=== PATIENT | male | born 1955 | race Caucasian/White ===

== ENCOUNTER 2021-11-25 15:11 | Inpatient (IN) | payer MEDICARE, OTHER ==
[~2021-11-25] VITALS: Ht 178 cm; Wt 71.1 kg
[~2021-11-25 15:11] MED LIST: ADENOSINE 6 MG/2 ML (ADENOCARD) VIAL IV ONE; HEParin (CATH LAB) 2,000 ML IV ONE; HEParin 1000 UNIT/ML (10ML VIAL) FOR BOLUS ONE; LIDOCAINE 1% INJ 30 ML (XYLOCAINE) VIAL ONE; MIDAZOLAM 2 MG/2 ML (VERSED) VIAL ONE; NITRO DRIP 25000 MCG/D5W 250 ML IV ONE; NS (IVPB) 250 ML ONE; NS IV 1000 ML 1,000 ML ONE; VERAPAMIL 5 MG/2 ML (CALAN) VIAL IV ONE; fentaNYL INJ 100 MCG/2 ML AMP ONE; hydrALAZINE (APESOLINE) 20 MG/ML VIAL ONE
--- NOTE | 2021-11-25 15:19 | Consultation-Cardiology ---
HPI-Cardiology Cardiology Consultation: Date of Consultation 11/25/21 Date of Admission 11/25/21 Attending Physician No,Local Physician Admitting Physician Admitting Physician: Attending Physician: Aureliano Bates Jr, MD Consulting Physician AURELIANO BATES JR, MD HPI: Time Seen by a Provider: 15:18 Chief Complaint: THIS IS A HISTORY AND PHYSICAL FOR ADMISSION I had the pleasure of seeing Santos in the cardiac catheterization laboratory at [facility] in [place], [place] today. He has no previously known history of coronary artery disease. For the past 4 days he has been having intermittent substernal chest tightness. This is waxed and waned. At first this was mild and he thought this might just be acid reflux. He tried taking some Tums which initially seemed to help. However, today the chest discomfort became more severe. He took some additional Tums which did not help. He was also slightly diaphoretic. He then had his son drive him to an outside emergency room. His electrocardiogram in the outside emergency room showed significant anterior ST elevation consistent with an anterior STEMI. I was then contacted by the outside emergency room physician and the patient was excepted for urgent transfer for emergency cardiac catheterization. He denies any dyspnea, paroxysmal nocturnal dyspnea, orthopnea, palpitations, lightheadedness, syncope, or lower extremity edema. Certain portions of this document may have been dictated utilizing voice recognition technology. Inherent to this technology, typographical and grammatical errors may exist. As much as I am diligent to identify and correct these mistakes, some errors may remain in the document. Review of Systems-Cardiology Review of Systems Other comments Review of 10 organ systems is as per the history of present illness, otherwise negative. YRY-Ywwacy-Gpzdzs Hx Patient Social History Smoking Status: Former Smoker Past Medical History PMH As described under Assessment. Family Medical History Family Medical History: His mother had heart disease but in her 70s. Allergies and Home Medications Patient Home Medication List Home Medication List Reviewed: Yes Exam Vital Signs Heart rate 77 bpm. Blood pressure 121/69 mmHg. Respirations 16. Oxygen saturation 97%. Height 5 foot 10 inches. Weight 165 pounds. Physical Exam General: Alert. No acute distress. Well nourished and appears stated age. Eye: Extraocular movements are intact. Conjunctivae are clear. There are no xanthelasma. HENT: Normocephalic. Atraumatic. Carotid pulsations 2/2 without bruits. Neck: Jugular venous pressure does not appear elevated. No thyromegaly appreciated. Respiratory: Lungs are clear to auscultation. Respirations are non-labored. Breath sounds are equal. Symmetrical chest wall expansion. Cardiovascular: Normal rate. Regular rhythm. No murmur. No gallop. Point of maximal impulse is not appear displaced. Good pulses equal in all extremities. No edema. Gastrointestinal: Soft. Normal bowel sounds. Skin: Skin turgor is normal. There is no pallor. Musculoskeletal: No kyphosis or scoliosis appreciated. Neurologic: Alert and oriented to person, place, time. Cranial nerves 3-12 appear grossly intact. The patient has good motor tone strength in the upper and lower extremities bilaterally. Psychiatric: Cooperative. Appropriate mood & affect. ECG Impression ECG Comment Electrocardiogram from the outside facility obtained at 14: 14 showed sinus rhythm with left anterior hemiblock and significant anterior ST elevation, most pronounced in V3 and V4 consistent with an anterior injury pattern. Diagnosis/Problems Diagnosis/Problems (1) ST elevation myocardial infarction (STEMI) of anterior wall, initial episode of care Assessment & Plan: He had near total occlusion of the mid left anterior descend ing coronary artery that was treated with 1 drug-eluting stent. There is some residual disease in the distal right coronary artery. He was given a loading dose of ticagrelor in the cardiac catheterization laboratory during the procedure. We will continue him on aspirin and ticagrelor. I will also start low-dose beta-ninfa and intensive dose statin medication. I will plan on an echocardiogram on Saturday morning. I suspect he will be in the hospital until Saturday. (2) Primary hypertension Assessment & Plan: He was taking lisinopril 5 mg twice daily at home. In light of the myocardial infarction, I will start him on carvedilol. I will hold off on giving him the lisinopril until I see how he responds to the carvedilol. AURELIANO BATES JR, MD Nov 25, 2021 15:19
--- NOTE | 2021-11-25 15:20 | Pre-Op Note & Conscious Sedat ---
Pre-Operative Progress Note Date H&P Reviewed: Nov 25, 2021 Time H&P Reviewed: 15:19 History & Physical: H&P Reviewed, Patient Examed, No changes noted Pre-Op Diagnosis: Anterior STEMI Conscious Sedation Pre-Proced ASA Score 3 For ASA 3 and 4: Consider anesthesia and medical clearance. Also, for patients with a history of failed moderate sedation consider anesthesia. Airway Lungs Heart ASA score ASA 1: a normal healthy patient ASA 2: a patient with a mild systemic disease (mid diabetes, controlled hypertension, obesity ASA 3: a patient with a severe systemic disease that limits activity (angina, COPD, prior Myocardial infarction) ASA 4: a patient with an incapacitating disease that is a constant threat to life (CHF, renal failure) ASA 5: a moribund patient not expected to survive 24 hrs. (ruptured aneurysm) ASA 6: a declared brain- patient whose organs are being harvested. For emergent operations, add the letter E after the classification Mallampati Classification Grade 1 Sedation Plan Analgesia, Amnesia, Plan communicated to team members, Discussed options with patient/fam, Discussed risks with patient/fam The patient is an appropriate candidate to undergo the planned procedure, sedation, and anesthesia. The patient immediately re-assessed prior to indication. Given his current clinical status, he is considered severely frail. He has no history of heart failure. LASHAY BAUER JR, MD Nov 25, 2021 15:20
[2021-11-25] MEDS ORDERED: TICAGRELOR 90 MG TABLET (BRILINTA) PO ONE (15:47)
[2021-11-25] MEDS ORDERED: NITROGLYCERIN 0.4 MG SL TABS BTL 25'S SL PRN (16:15)
[2021-11-25] MEDS: NS IV 1000 ML 1,000 ML IV SCH (16:20)
[2021-11-25] MEDS ORDERED: ACETAMINOPHEN 325 MG TABLET PO PRN (16:30)
[2021-11-25] MEDS ORDERED: ZOLPIDEM 5 MG (AMBIEN) TAB PO PRN (16:30)
[2021-11-25] MEDS ORDERED: ANTACID SUSP 30 ML UDC (MYLANTA) PO PRN (16:30)
--- NOTE | 2021-11-25 17:18 | Cardiac Cath Report ---
CARDIAC CATHETERIZATION DATE OF PROCEDURE: 11/25/2021 INDICATION: Anterior STEMI. HISTORY: The patient is a 66 year old male with no previously known history of coronary artery disease who presented to an outside hospital with a 4-day history of waxing and waning chest pain which became much more severe today prompting his visit to the emergency room. His electrocardiogram in the outside facility showed sinus rhythm with anterior ST elevation consistent with an anterior STEMI. I was then contacted regarding emergency cardiac catheterization. We called a code STEMI in our hospital and the patient was brought to our hospital via EMS from the outside hospital and came directly to our cardiac catheterization laboratory for emergency cardiac catheterization. Given the patient's current clinical status, he is considered severely frail. He has no history of heart failure. PROCEDURES PERFORMED: 1. Left heart catheterization with hemodynamic measurements. 2. Diagnostic [place] coronary angiography. 3. Drug-eluting stent placement to the mid left anterior descending coronary artery. This was the ischemia related vessel for the acute myocardial infarction. PROCEDURE DESCRIPTION: After informed consent and in the fasting state, left he art catheterization was performed through the right radial artery utilizing a 6 Ug[place]an system by percutaneous approach. A 5 [place]andan JR4 catheter was utilized to interrogate the left ventricle and right coronary artery and a 6 [place] CLS 3.5 guide catheter was utilized to interrogate the left coronary artery and for the percutaneous coronary intervention. All catheters were exchanged over a guidewire. Following the procedure, a vascular band was applied to the radial artery access site and the sheath was removed with good hemostasis. RESULTS: HEMODYNAMICS: The aortic pressure was 128/56 mmHg. The left ventricular pressure was 132/0 mmHg with a left ventricular end-diastolic pressure of 7 mmHg. There was no significant pressure gradient upon pullback across aortic valve. CORONARY ANGIOGRAPHY: Left main coronary artery: Free of significant disease. Left anterior descending coronary artery: There was a long up to 40% stenosis in the proximal segment. There appeared to be a possible old healed plaque rupture on the inferior aspect of the proximal left anterior descending coronary artery. There was a 99% stenosis in the midsegment with evidence of thrombus and CARLOS-1 flow. The distal vessel contains moderate diffuse disease up to 50% stenotic but this could not be recognized until the mid segment was stented. Left circumflex coronary artery: The left circumflex coronary artery proper was free of significant disease. There was 1 large obtuse marginal branch which was free of significant disease. Right coronary artery: Dominant and there was a long up to 30% stenosis in the midsegment and a 60% hazy stenosis in the distal segment just proximal to the most distal posterolateral branch with CARLOS-2 flow throughout the entire vessel. PERCUTANEOUS CORONARY INTERVENTION: Percutaneous coronary invention was carried out in the left anterior descending coronary artery through a 6 [place] CLS 3.5 guide catheter. The lesion was successfully crossed with a Whisper medium support guidewire. Intracoronary adenosine was administered. I subsequently performed coronary angioplasty with a 3 x 12 mm Trek balloon at a pressure of 10 clarissa. Flow was restored. I then administered intracoronary nitroglycerin and some additional intracoronary adenosine. I subsequently deployed a 3 x 18 mm drug-eluting Xience Skypoint stent at a pressure of 16 clarissa. Following stent placement, there was 0% residual stenosis with CARLOS-3 flow. This was the ischemia related vessel for the acute anterior ST elevation myocardial infarction. IMPRESSION: 1. Normal left heart pressures. 2. There was a 99% stenosis of the mid left anterior descending coronary artery with CARLOS-1 flow. This was the ischemia related vessel for the acute myocardial infarction. 3. Status post drug-eluting stent placement to the mid left anterior descending coronary artery with a 3 x 18 mm Xience Skypoint stent with 0% residual stenosis and CARLOS-3 flow. 4. There is mild to moderate residual disease in the dominant right coronary artery and distal left anterior descending coronary artery as outlined above. These will be managed medically. 5. I will plan to obtain an echocardiogram on the patient on Saturday to assess his left ventricular function. This procedure was performed on Saturday afternoon. Certain portions of this document may have been dictated utilizing voice recognition technology. Inherent to this technology, typographical and gramm atical errors may exist. As much as I am diligent to identify and correct these mistakes, some errors may remain in the document. LASHAY BAUER JR, MD Nov 25, 2021 17:18
[2021-11-25 17:36] LABS: BASOPHILS % (AUTO) 0 % (0-10); EOSINOPHILS # (AUTO) 0.1 10^3/uL (0.0-0.3); EOSINOPHILS % (AUTO) 1 % (0-10); HEMATOCRIT 44 % (40-54); HEMOGLOBIN 14.2 g/dL (13.3-17.7); LYMPHOCYTES % (AUTO) 29 % (12-44); MEAN CORPUSCULAR HEMOGLOBIN 27 pg (25-34); MEAN CORPUSCULAR HGB CONC 33 g/dL (32-36); MEAN CORPUSCULAR VOLUME 83 fL (80-99); MEAN PLATELET VOLUME 11.1 fL (9.0-12.2); MONOCYTES # (AUTO) 0.4 10^3/uL (0.0-1.0); MONOCYTES % (AUTO) 5 % (0-12); NEUTROPHILS # (AUTO) 4.6 10^3/uL (1.8-7.8); NEUTROPHILS % (AUTO) 65 % (42-75); PLATELET COUNT 200 10^3/uL (130-400); WHITE BLOOD COUNT 7.1 10^3/uL (4.3-11.0)
[2021-11-25 17:45] LABS: ALBUMIN 4.1 GM/DL (3.2-4.5)
[2021-11-25 17:47] LABS: CALCIUM 9.4 MG/DL (8.5-10.1)
[2021-11-25 17:48] LABS: TOTAL PROTEIN 6.7 GM/DL (6.4-8.2)
[2021-11-25 17:50] LABS: BILIRUBIN,TOTAL 0.4 MG/DL (0.1-1.0)
[2021-11-25 17:52] LABS: CREATININE SERUM 0.86 MG/DL (0.60-1.30)
[2021-11-25] MEDS: ENOXAPARIN 40 MG/0.4 ML (LOVENOX) SYR SC SCH (18:16)
[2021-11-25 19:47] VITALS: BP 152/81
[2021-11-25] MEDS: ROSUVASTATIN 20 MG (CRESTOR) TABLET PO SCH (20:18)
[2021-11-25] MEDS: TICAGRELOR 90 MG TABLET (BRILINTA) PO SCH (20:18)
[2021-11-25 23:45] VITALS: BP 144/93
[2021-11-26] MEDS: NS IV 1000 ML 1,000 ML IV SCH (03:00)
[2021-11-26 04:00] VITALS: BP 152/79
[2021-11-26 04:24] LABS: BASOPHILS % (AUTO) 0 % (0-10); EOSINOPHILS # (AUTO) 0.1 10^3/uL (0.0-0.3); EOSINOPHILS % (AUTO) 2 % (0-10); HEMATOCRIT 43 % (40-54); HEMOGLOBIN 14.3 g/dL (13.3-17.7); LYMPHOCYTES # (AUTO) 2.9 10^3/uL (1.0-4.0); LYMPHOCYTES % (AUTO) 42 % (12-44); MEAN CORPUSCULAR HEMOGLOBIN 28 pg (25-34); MEAN CORPUSCULAR HGB CONC 33 g/dL (32-36); MEAN CORPUSCULAR VOLUME 83 fL (80-99); MEAN PLATELET VOLUME 10.9 fL (9.0-12.2); MONOCYTES # (AUTO) 0.5 10^3/uL (0.0-1.0); MONOCYTES % (AUTO) 7 % (0-12); NEUTROPHILS # (AUTO) 3.4 10^3/uL (1.8-7.8); NEUTROPHILS % (AUTO) 50 % (42-75); PLATELET COUNT 178 10^3/uL (130-400); WHITE BLOOD COUNT 6.9 10^3/uL (4.3-11.0)
[2021-11-26 04:51] LABS: CALCIUM 9.3 MG/DL (8.5-10.1); CREATININE SERUM 0.9 MG/DL (0.60-1.30); POTASSIUM 4.1 MMOL/L (3.6-5.0)
[2021-11-26 07:42] VITALS: BP 178/77
[2021-11-26] MEDS: TICAGRELOR 90 MG TABLET (BRILINTA) PO SCH ×2 (08:20→20:11)
[2021-11-26] MEDS: ASPIRIN E.C. 81 MG (ECOTRIN) TAB PO SCH (08:20)
--- NOTE | 2021-11-26 08:59 | Cardiology Progress Note ---
Progress Note-Cardiology Events since last exam Date Seen by Provider: Nov 26, 2021 Time Seen by Provider: 10:17 Events since last exam He is on my service following an anterior STEMI that was treated with 1 drug- eluting stent to the mid left anterior descending coronary artery. He denies any further chest discomfort. He states that he has had some slight fluttering sensations in his chest this morning but denies associated symptoms. He denies dyspnea, syncope, or ankle edema. He smokes medical marijuana 2 or 3 times every day due to back and neck pain. Certain portions of this document may have been dictated utilizing voice recognition technology. Inherent to this technology, typographical and gr ammatical errors may exist. As much as I am diligent to identify and correct these mistakes, some errors may remain in the document. Vitals Last set of Vitals Signs Vital Signs 11/26/21 11/26/21 11/26/21 07:42 08:35 08:38 Temp 36.4 Pulse 64 Resp 15 B/P (MAP) 178/77 (110) Pulse Ox 98 O2 Delivery Room Air O2 Flow Rate 0.00 Labs Labs Laboratory Tests 11/25/21 17:24 11/26/21 04:10 Exam Vital Signs Vital Signs Date Time Temp Pulse Resp B/P (MAP) Pulse Ox O2 Delivery O2 Flow Rate FiO2 11/26/21 08:38 Room Air 0.00 11/26/21 08:35 98 11/26/21 07:42 36.4 64 15 178/77 (110) Physical Exam General: Alert. No acute distress. Eye: No xanthelasma. HENT: Normocephalic. Neck: Jugular venous pressure does not appear elevated. Respiratory: Lungs have some slight scattered wheezes on the left. Respirations are non-labored. Breath sounds are equal. Symmetrical chest wall expansion. Cardiovascular: Normal rate. Regular rhythm. No murmur. No gallop. No edema. Gastrointestinal: Soft. Normal bowel sounds. Skin: Warm. Dry. Neurologic: Alert and oriented to person, place, time. Cranial nerves 3-11 grossly intact. Psychiatric: Cooperative. Appropriate mood & affect. Labs Laboratory Tests Test 11/25/21 17:24 11/26/21 04:10 11/26/21 09:15 Range/Units White Blood Count 7.1 6.9 4.3-11.0 10^3/uL Red Blood Count 5.25 5.20 4.30-5.52 10^6/uL Hemoglobin 14.2 14.3 13.3-17.7 g/dL Hematocrit 44 43 40-54 % Mean Corpuscular Volume 83 83 80-99 fL Mean Corpuscular Hemoglobin 27 28 25-34 pg Mean Corpuscular Hemoglobin Concent 33 33 32-36 g/dL Red Cell Distribution Width 13.9 13.9 10.0-14.5 % Platelet Count 200 178 130-400 10^3/uL Mean Platelet Volume 11.1 10.9 9.0-12.2 fL Immature Granulocyte % (Auto) 0 0 % Neutrophils (%) (Auto) 65 50 42-75 % Lymphocytes (%) (Auto) 29 42 12-44 % Monocytes (%) (Auto) 5 7 0-12 % Eosinophils (%) (Auto) 1 2 0-10 % Basophils (%) (Auto) 0 0 0-10 % Neutrophils # (Auto) 4.6 3.4 1.8-7.8 10^3/uL Lymphocytes # (Auto) 2.0 2.9 1.0-4.0 10^3/uL Monocytes # (Auto) 0.4 0.5 0.0-1.0 10^3/uL Eosinophils # (Auto) 0.1 0.1 0.0-0.3 10^3/uL Basophils # (Auto) 0.0 0.0 0.0-0.1 10^3/uL Immature Granulocyte # (Auto) 0.0 0.0 0.0-0.1 10^3/uL Sodium Level 137 138 135-145 MMOL/L Potassium Level 4.0 4.1 3.6-5.0 MMOL/L Chloride Level 104 106 98-107 MMOL/L Carbon Dioxide Level 21 21 21-32 MMOL/L Anion Gap 12 11 5-14 MMOL/L Blood Urea Nitrogen 15 16 7-18 MG/DL Creatinine 0.86 0.90 0.60-1.30 MG/DL Estimat Glomerular Filtration Rate 95 94 BUN/Creatinine Ratio 17 18 Glucose Level 134 H 79 70-105 MG/DL Calcium Level 9.4 9.3 8.5-10.1 MG/DL Corrected Calcium 9.3 8.5-10.1 MG/DL Total Bilirubin 0.4 0.1-1.0 MG/DL Aspartate Amino Transf (AST/SGOT) 24 5-34 U/L Alanine Aminotransferase (ALT/SGPT) 27 0-55 U/L Alkaline Phosphatase 67 40-136 U/L Troponin I 0.290 H 0.547 *H <0.028 NG/ML Total Protein 6.7 6.4-8.2 GM/DL Albumin 4.1 3.2-4.5 GM/DL Triglycerides Level 93 <150 MG/DL Cholesterol Level 173 < 200 MG/DL LDL Cholesterol Direct 136 H 1-129 MG/DL VLDL Cholesterol 19 5-40 MG/DL HDL Cholesterol 26 L 40-60 MG/DL Diagnosis/Problems Diagnosis/Problems (1) ST elevation myocardial infarction (STEMI) of anterior wall, initial episode of care Assessment & Plan: He had near total occlusion of the mid left anterior descending coronary artery that was treated with 1 drug-eluting stent. There is some residual disease in the distal right coronary artery. He denies any further angina. He has no symptoms of heart failure. He has not had any signi ficant ventricular arrhythmias on telemetry. We will continue aspirin, ticagrelor, beta-ninfa and high-dose statin medication. I will obtain an echocardiogram tomorrow. I anticipate discharge late tomorrow morning or early afternoon. (2) Primary hypertension Assessment & Plan: He was taking lisinopril 5 mg twice daily at home. In light of the myocardial infarction, I started him on carvedilol. His blood pressure remains elevated. I will restart his lisinopril. He tells me that his heart rate always runs in the 50s at home. (3) Mixed hyperlipidemia Assessment & Plan: His LDL level was elevated. He is on intensive dose statin medication due to the acute myocardial infarction. (4) Marijuana smoker, continuous Assessment & Plan: He uses medical marijuana due to back pain. He is trying to cut down on this. (5) Chewing tobacco use Assessment & Plan: I encouraged him to quit using chewing tobacco. LASHAY BAUER JR, MD Nov 26, 2021 08:59
[2021-11-26] MEDS ORDERED: lisINopril 5 MG (PRINIVIL) TABLET PO NR (10:00)
[2021-11-26 12:35] VITALS: BP 162/88
[2021-11-26 16:00] VITALS: BP 160/79
[2021-11-26 19:00] VITALS: BP 171/93
[2021-11-26] MEDS: ROSUVASTATIN 20 MG (CRESTOR) TABLET PO SCH (20:10)
[2021-11-26] MEDS: ENOXAPARIN 40 MG/0.4 ML (LOVENOX) SYR SC SCH (20:10)
[2021-11-26] MEDS: lisINopril 5 MG (PRINIVIL) TABLET PO SCH (20:11)
[2021-11-27] VITALS (10 sets, daily range): BP systolic 129–190; BP diastolic 67–103
[2021-11-27 04:14] LABS: BASOPHILS % (AUTO) 0 % (0-10); EOSINOPHILS # (AUTO) 0.1 10^3/uL (0.0-0.3); EOSINOPHILS % (AUTO) 2 % (0-10); HEMATOCRIT 46 % (40-54); HEMOGLOBIN 15.1 g/dL (13.3-17.7); LYMPHOCYTES # (AUTO) 3.6 10^3/uL (1.0-4.0); LYMPHOCYTES % (AUTO) 45 % (12-44); MEAN CORPUSCULAR HEMOGLOBIN 27 pg (25-34); MEAN CORPUSCULAR HGB CONC 33 g/dL (32-36); MEAN CORPUSCULAR VOLUME 83 fL (80-99); MEAN PLATELET VOLUME 10.7 fL (9.0-12.2); MONOCYTES # (AUTO) 0.4 10^3/uL (0.0-1.0); MONOCYTES % (AUTO) 5 % (0-12); NEUTROPHILS # (AUTO) 3.8 10^3/uL (1.8-7.8); NEUTROPHILS % (AUTO) 48 % (42-75); PLATELET COUNT 208 10^3/uL (130-400)
[2021-11-27 04:31] LABS: CALCIUM 9.4 MG/DL (8.5-10.1); CREATININE SERUM 0.89 MG/DL (0.60-1.30); POTASSIUM 4.5 MMOL/L (3.6-5.0)
[2021-11-27] MEDS: ASPIRIN E.C. 81 MG (ECOTRIN) TAB PO SCH (08:29)
[2021-11-27] MEDS: TICAGRELOR 90 MG TABLET (BRILINTA) PO SCH ×2 (08:30→23:23)
[2021-11-27] MEDS: lisINopril 5 MG (PRINIVIL) TABLET PO SCH (08:30)
[2021-11-27] MEDS ORDERED: LISI5TAB20 PO (09:01)
[2021-11-27] MEDS ORDERED: NITR0.4T42 SL (09:09)
[2021-11-27] MEDS ORDERED: CARV3.122 PO (09:09)
[2021-11-27] MEDS ORDERED: TICA90TA PO (09:09)
[2021-11-27] MEDS ORDERED: ROSU20TA32 PO (09:09)
[2021-11-27] MEDS ORDERED: ASPI-1238 PO (09:09)
[2021-11-27] MEDS ORDERED: PANT40TA52 PO (09:15)
--- NOTE | 2021-11-27 09:22 | Discharge Summary ---
Diagnosis/Chief Complaint Date of Admission Nov 25, 2021 at 16:05 Date of Discharge 11/27/21 Discharge Date: Nov 27, 2021 Admission Diagnosis Admission Diagnosis Anterior ST elevation myocardial infarction. Discharge Diagnosis 1. Anterior ST elevation myocardial infarction. 2. Coronary artery disease with unstable angina. 3. Primary hypertension. 4. Mixed hyperlipidemia. 5. Gastroesophageal reflux disease without esophagitis. 6. Pulmonary hypertension. 7. Active marijuana use. 8. Active chewing tobacco use. Reason Hospital Visit Anterior ST elevation myocardial infarction. Discharge Summary Hospital Course Was the Problem List Reviewed?: Yes Hospital Course The patient presented to an outside hospital with 4 days of intermittent chest discomfort. He was found to have an acute anterior ST elevation myocardial infarction on his electrocardiogram at the outside facility and he was sent to our facility for emergency cardiac catheterization which he underwent on 11/25/2021. He was found to have a subacute occlusion of the mid left anterior descending coronary artery that was treated with 1 drug-eluting stent. He had mild to moderate disease elsewhere. He was placed on aspirin, ticagrelor, carvedilol, and intensive dose rosuvastatin. The morning of discharge he did have some chest discomfort that he thought may be due to his esophageal reflux disease and I intensified his proton pump inhibitor. He had an echocardiogram that showed normal ejection fraction and he was not having any significant arrhythmias on telemetry monitoring. He was discharged to home with plans to follow-up with me in the office in 1 month. Over 30 minutes was spent in direct [id number] contact with the patient and preparing this discharge summary. Labs Laboratory Tests 11/25/21 17:24: Glucose Level 134H, Troponin I 0.290H 11/26/21 04:10: Troponin I 0.547*H, Mean Blood Glucose 134H, Hemoglobin A1c 6.3H, LDL Cholesterol Direct 136H, HDL Cholesterol 26L 11/26/21 09:15: Troponin I 0.478*H 11/27/21 04:03: Red Blood Count 5.60H, Lymphocytes (%) (Auto) 45H, Carbon Dioxide Level 19L Procedures ECHOCARDIOGRAM (11/27/2021): 1. This is a technically difficult study due to poor image quality secondary to poor acoustic windows. Intravenous contrast was administered to enhance image quality. 2. Left ventricle: The cavity size is normal. There is moderate focal basal hypertrophy. Systolic function is normal. The estimated ejection fraction is 55- 60%. There were no regional wall motion abnormalities identified. Doppler parameters are consistent with abnormal left ventricular relaxation (grade 1 diastolic dysfunction). 3. Aortic valve: There is mild aortic valve sclerosis. 4. Pulmonary arteries: The estimated pulmonary artery systolic pressure is 42 mmHg assuming a right atrial pressure of 5 mmHg. CARDIAC CATHETERIZATION AND PERCUTANEOUS CORONARY INTERVENTION (11/25/2021): 1. Normal left heart pressures. 2. There was a 99% stenosis of the mid left anterior descending coronary artery with CARLOS-1 flow. This was the ischemia related vessel for the acute myocardial infarction. 3. Status post drug-eluting stent placement to the mid left anterior descending coronary artery with a 3 x 18 mm Xience Skypoint stent with 0% residual stenosis and CARLOS-3 flow. 4. There is mild to moderate residual disease in the dominant right coronary artery and distal left anterior descending coronary artery as outlined above. These will be managed medically. 5. I will plan to obtain an echocardiogram on the patient on Saturday to assess his left ventricular function. This procedure was performed on Saturday afternoon. Discharge Physical Examination Allergies: Coded Allergies: No Known Drug Allergies (Unverified , 11/25/21) Vitals & I&Os Vital Signs Date Time Temp Pulse Resp B/P (MAP) Pulse Ox O2 Delivery O2 Flow Rate FiO2 11/27/21 13:00 60 11/27/21 12:12 36.3 18 175/90 (118) 97 Room Air 11/26/21 08:38 0.00 General Appearance: Alert, Oriented X3, Cooperative, No Acute Distress HEENT: Atraumatic, EOMI, Mucous Memb Moist/[place] Respiratory: Clear to Auscultation, Normal Air Movement Cardiovascular: Regular Rate, Normal S1, Normal S2, No Murmurs Abdominal: Normal Bowel Sounds, Soft, No Tenderness Extremities: No Clubbing, No Cyanosis, No Edema, Normal Pulses, No Tenderness/Swelling Skin: No Rashes, No Breakdown, No Significant Lesion Neuro: Normal Speech, Strength at 5/5 X4 Ext, Normal Tone, Sensation Intact, Cranial Nerves 3-12 NL Psych/Mental Status: Mental Status NL Discharge Home Medications Reviewed and agree with Discharge Medication list on patient's Discharge Instruction sheet Condition at Discharge Improved. Good. Instructions to Patient/Family Please see electronic discharge instructions given to patient. Clinical Quality Measures End of Life/Advance Care Plan: Advance Care discuss with: patient Plan: initiate discussion, clarifying prognosis Admission Status Admission Status: Inpatient Order (span 2 midnights) Reason for Inpatient Admission: Acute anterior ST elevation myocardial infarction. AMI/AHF: Ejection Fraction: Normal LVSF D/C Medications Addressed: [place] inhibitors, Beta ninfa D/C Inst. for HF given: No ASA Given prior to admit: Yes ASA po Prior to arrival: Yes DVT/VTE Risk/Contraindication: VTE Addressed: Yes VTE Present on Admission: No Smoking Cessation Counseling: Counseling-Symptomatic: 3-10 Minutes LASHAY BAUER JR, MD Nov 27, 2021 09:22
[2021-11-27] MEDS: PANTOPRAZOLE 40 MG (PROTONIX) TAB PO SCH (09:49)
[2021-11-27] MEDS ORDERED: lisINopril 5 MG (PRINIVIL) TABLET PO NR (13:00)
[2021-11-27] MEDS ORDERED: LISI10TA25 PO (13:21)
[2021-11-27] MEDS ORDERED: lisINopril 5 MG (PRINIVIL) TABLET PO ONE (14:30)
[2021-11-27] MEDS ORDERED: hydrALAZINE (APESOLINE) 20 MG/ML VIAL IV NR (16:30)
[2021-11-27] MEDS: ENOXAPARIN 40 MG/0.4 ML (LOVENOX) SYR SC SCH (19:00)
[2021-11-27] MEDS ORDERED: lisINopril 10 MG (PRINIVIL) TABLET ONE (19:59)
[2021-11-27] MEDS ORDERED: lisINopril 10 MG (PRINIVIL) TABLET PO ONE (20:00)
[2021-11-27] MEDS ORDERED: lisINopril 5 MG (PRINIVIL) TABLET PO SCH (21:00)
[2021-11-27] MEDS ORDERED: lisINopril 10 MG (PRINIVIL) TABLET PO SCH (21:00)
[2021-11-27] MEDS: ROSUVASTATIN 20 MG (CRESTOR) TABLET PO SCH (23:23)
[2021-11-27] MEDS: lisINopril 10 MG (PRINIVIL) TABLET PO SCH (23:23)
[2021-11-28] VITALS: BP 141/85
[2021-11-28 04:00] VITALS: BP 158/91
[2021-11-28 05:00] LABS: BASOPHILS % (AUTO) 1 % (0-10); EOSINOPHILS # (AUTO) 0.1 10^3/uL (0.0-0.3); EOSINOPHILS % (AUTO) 1 % (0-10); HEMATOCRIT 47 % (40-54); HEMOGLOBIN 15.6 g/dL (13.3-17.7); LYMPHOCYTES # (AUTO) 3.5 10^3/uL (1.0-4.0); LYMPHOCYTES % (AUTO) 42 % (12-44); MEAN CORPUSCULAR HEMOGLOBIN 27 pg (25-34); MEAN CORPUSCULAR HGB CONC 33 g/dL (32-36); MEAN CORPUSCULAR VOLUME 82 fL (80-99); MEAN PLATELET VOLUME 10.6 fL (9.0-12.2); MONOCYTES # (AUTO) 0.5 10^3/uL (0.0-1.0); MONOCYTES % (AUTO) 6 % (0-12); NEUTROPHILS # (AUTO) 4.3 10^3/uL (1.8-7.8); NEUTROPHILS % (AUTO) 50 % (42-75); PLATELET COUNT 211 10^3/uL (130-400); WHITE BLOOD COUNT 8.4 10^3/uL (4.3-11.0)
[2021-11-28 05:16] LABS: CALCIUM 9.5 MG/DL (8.5-10.1); CREATININE SERUM 0.86 MG/DL (0.60-1.30); POTASSIUM 4.3 MMOL/L (3.6-5.0)
[2021-11-28 07:22] VITALS: BP 166/91
[2021-11-28] MEDS: TICAGRELOR 90 MG TABLET (BRILINTA) PO SCH (08:15)
[2021-11-28] MEDS: PANTOPRAZOLE 40 MG (PROTONIX) TAB PO SCH (08:15)
[2021-11-28] MEDS: ASPIRIN E.C. 81 MG (ECOTRIN) TAB PO SCH (08:15)
[2021-11-28] MEDS: lisINopril 10 MG (PRINIVIL) TABLET PO SCH (08:15)
[2021-11-28] MEDS ORDERED: LISI10TA25 PO (08:18)
[2021-11-28] MEDS ORDERED: ISOSORBIDE MONONITRATE 30 MG (IMDUR) TAB PO SCH (09:00)
[2021-11-28] MEDS ORDERED: lisINopril 10 MG (PRINIVIL) TABLET PO SCH (09:00)
--- NOTE | 2021-11-28 09:09 | Discharge Summary ---
Diagnosis/Chief Complaint Date of Admission Nov 25, 2021 at 16:05 Date of Discharge 11/28/21 Discharge Date: Nov 28, 2021 Admission Diagnosis Admission Diagnosis Anterior ST elevation myocardial infarction. Discharge Diagnosis 1. Anterior ST elevation myocardial infarction. 2. Coronary artery disease with unstable angina. 3. Primary hypertension. 4. Mixed hyperlipidemia. 5. Gastroesophageal reflux disease without esophagitis. 6. Pulmonary hypertension. 7. Active marijuana use. 8. Active chewing tobacco use. Reason Hospital Visit Anterior ST elevation myocardial infarction. Discharge Summary Hospital Course Was the Problem List Reviewed?: Yes Hospital Course The patient presented to an outside hospital with 4 days of intermittent chest discomfort. He was found to have an acute anterior ST elevation myocardial infarction on his electrocardiogram at the outside facility and he was sent to our facility for emergency cardiac catheterization which he underwent on 11/25/2021. He was found to have a subacute occlusion of the mid left anterior descending coronary artery that was treated with 1 drug-eluting stent. He had mild to moderate disease elsewhere. He was placed on aspirin, ticagrelor, carvedilol, and intensive dose rosuvastatin. The morning of discharge he did have some chest discomfort that he thought may be due to his esophageal reflux disease and I intensified his proton pump inhibitor. He had an echocardiogram that showed normal ejection fraction and he was not having any significant arrhythmias on telemetry monitoring. He was discharged to home with plans to follow-up with me in the office in 1 month. I had anticipated discharging the patient on 11/27/2021 but his blood pressure remained elevated. I gave him some extra doses of antihypertensive medication and also increased his dose of lisinopril. On the day of discharge on 11/28/2021, his blood pressure was improved. He did have some mild chest tightness and he was started on isosorbide mononitrate in the event he has some degree of coronary spasm. Labs Laboratory Tests 11/25/21 17:24: Glucose Level 134H, Troponin I 0.290H 11/26/21 04:10: Troponin I 0.547*H, Mean Blood Glucose 134H, Hemoglobin A1c 6.3H, LDL Cholesterol Direct 136H, HDL Cholesterol 26L 11/26/21 09:15: Troponin I 0.478*H 11/27/21 04:03: Red Blood Count 5.60H, Lymphocytes (%) (Auto) 45H, Carbon Dioxide Level 19L 11/28/21 04:37: Red Blood Count 5.72H, Carbon Dioxide Level 19L, Blood Urea Nitrogen 19H Procedures ECHOCARDIOGRAM (11/27/2021): 1. This is a technically difficult study due to poor image quality secondary to poor acoustic windows. Intravenous contrast was administered to enhance image quality. 2. Left ventricle: The cavity size is normal. There is moderate focal basal hypertrophy. Systolic function is normal. The estimated ejection fraction is 55- 60%. There were no regional wall motion abnormalities identified. Doppler parameters are consistent with abnormal left ventricular relaxation (grade 1 diastolic dysfunction). 3. Aortic valve: There is mild aortic valve sclerosis. 4. Pulmonary arteries: The estimated pulmonary artery systolic pressure is 42 mmHg assuming a right atrial pressure of 5 mmHg. CARDIAC CATHETERIZATION AND PERCUTANEOUS CORONARY INTERVENTION (11/25/2021): 1. Normal left heart pressures. 2. There was a 99% stenosis of the mid left anterior descending coronary artery with CARLOS-1 flow. This was the ischemia related vessel for the acute myocardial infarction. 3. Status post drug-eluting stent placement to the mid left anterior descending coronary artery with a 3 x 18 mm Xience Skypoint stent with 0% residual stenosis and CARLOS-3 flow. 4. There is mild to moderate residual disease in the dominant right coronary artery and distal left anterior descending coronary artery as outlined above. These will be managed medically. 5. I will plan to obtain an echocardiogram on the patient on Saturday to assess his left ventricular function. This procedure was performed on Saturday aftern oon. Discharge Physical Examination Allergies: Coded Allergies: No Known Drug Allergies (Unverified , 11/25/21) Vitals & I&Os Vital Signs Date Time Temp Pulse Resp B/P (MAP) Pulse Ox O2 Delivery O2 Flow Rate FiO2 11/28/21 07:22 36.4 71 14 166/91 (116) 91 Room Air 11/26/21 08:38 0.00 General Appearance: Alert, Oriented X3, Cooperative, No Acute Distress HEENT: Atraumatic, EOMI, Mucous Memb Moist/[place] Respiratory: Normal Air Movement, Other (Fine scattered wheezes.) Cardiovascular: Regular Rate, Normal S1, Normal S2, No Murmurs Abdominal: Normal Bowel Sounds, Soft, No Tenderness Extremities: No Clubbing, No Cyanosis, No Edema, Normal Pulses Skin: No Rashes, No Breakdown, No Significant Lesion Neuro: Normal Speech, Strength at 5/5 X4 Ext, Normal Tone, Cranial Nerves 3-12 NL Psych/Mental Status: Mental Status NL Discharge Home Medications Reviewed and agree with Discharge Medication list on patient's Discharge Instruction sheet Instructions to Patient/Family Please see electronic discharge instructions given to patient. Clinical Quality Measures End of Life/Advance Care Plan: Advance Care discuss with: patient Plan: initiate discussion Admission Status Admission Status: Inpatient Order (span 2 midnights) Reason for Inpatient Admission: Anterior ST elevation myocardial infarction. AMI/AHF: Ejection Fraction: Normal LVSF D/C Medications Addressed: [place] inhibitors, Beta ninfa D/C Inst. for HF given: No ASA Given prior to admit: Yes ASA po Prior to arrival: Yes DVT/VTE Risk/Contraindication: VTE Addressed: Yes VTE Present on Admission: No Smoking Cessation Counseling: Counseling-Symptomatic: 3-10 Minutes LASHAY BAUER JR, MD Nov 28, 2021 09:09
[2021-11-28] MEDS ORDERED: ISOS30TA82 PO (09:12)
[2021-11-28 11:00] VITALS: BP 139/76
[2021-11-28 11:40] VITALS: BP 139/76
[2021-11-28 12:00] VITALS: BP 137/84
== END 2021-11-28 14:30 | disposition home or self-care (01) | DRG 247 ==
LOC: CATH 15:11 → CSD 16:05
PROVIDERS: ADMIT Internal Medicine Cardiovascular Disease; ATTEND Internal Medicine Cardiovascular Disease
PROC: 027034Z Dilation of Coronary Artery, One Artery with Drug-eluting Intraluminal Device, Percutaneous Approach (ICD-10-PCS; principal; 2021-11-25)
PROC: 4A023N7 Measurement of Cardiac Sampling and Pressure, Left Heart, Percutaneous Approach (ICD-10-PCS; 2021-11-25)
PROC: B2111ZZ Fluoroscopy of Multiple Coronary Arteries using Low Osmolar Contrast (ICD-10-PCS; 2021-11-25)
DX: I21.09 ST elevation (STEMI) myocardial infarction involving other coronary artery of anterior wall (principal); I25.110 Atherosclerotic heart disease of native coronary artery with unstable angina pectoris; I10 Essential (primary) hypertension; E78.2 Mixed hyperlipidemia; K21.9 Gastro-esophageal reflux disease without esophagitis; I27.20 Pulmonary hypertension, unspecified; F12.90 Cannabis use, unspecified, uncomplicated; F17.220 Nicotine dependence, chewing tobacco, uncomplicated
CPT/HCPCS: 36415; 80048; 80053; 80061; 83036; 84484; 85025; 85347; 93005; 93306; 93458

== ENCOUNTER → 2022-11-15 | Outpatient (CLI) | payer MEDICARE ==
[~2022-11-15] MED LIST changes: -ADENOSINE 6 MG/2 ML (ADENOCARD) VIAL IV ONE; +ASPI-1238 PO; +CARV3.122 PO; -HEParin (CATH LAB) 2,000 ML IV ONE; -HEParin 1000 UNIT/ML (10ML VIAL) FOR BOLUS ONE; +ISOS30TA82 PO; -LIDOCAINE 1% INJ 30 ML (XYLOCAINE) VIAL ONE; +LISI10TA25 PO; +LISI5TAB20 PO; -MIDAZOLAM 2 MG/2 ML (VERSED) VIAL ONE; +NITR0.4T42 SL; -NITRO DRIP 25000 MCG/D5W 250 ML IV ONE; -NS (IVPB) 250 ML ONE; -NS IV 1000 ML 1,000 ML ONE; +PANT40TA52 PO; +ROSU20TA73 PO; +TICA90TA PO; -VERAPAMIL 5 MG/2 ML (CALAN) VIAL IV ONE; -fentaNYL INJ 100 MCG/2 ML AMP ONE; -hydrALAZINE (APESOLINE) 20 MG/ML VIAL ONE
== END ==
LOC: CARD 09:30
PROVIDERS: ATTEND Internal Medicine Cardiovascular Disease
DX: I51.7 Cardiomegaly (principal); I25.10 Atherosclerotic heart disease of native coronary artery without angina pectoris
CPT/HCPCS: 93306

== ENCOUNTER → 2022-12-17 | Outpatient (CLI) | payer MEDICARE ==
[~2022-12-17] MED LIST changes: +CATHETER FLUSH 10 ML SYR IVP PRN; +REGADENOSON 0.4 MG/5 ML SYR IV ONE
[2022-12-17 09:00] VITALS: BP 144/82
--- NOTE | 2022-12-17 12:17 | Cardiology Stress Test Report ---
Stress Test Report Date of Procedure/Referring: Date of Procedure: Dec 17, 2022 PCP No,Local Physician Admitting Physician Admitting Physician: Attending Physician: Yina Levine MD Baseline Heart Rate: 58 Baseline Blood Pressure: Blood Pressure Systolic: 144 Blood Pressure Diastolic: 82 Baseline Vitals Vital Signs Date Time Temp Pulse Resp B/P (MAP) Pulse Ox O2 Delivery O2 Flow Rate FiO2 12/17/22 09:00 58 144/82 (102) 96 Baseline EKG: Baseline EKG: NSR Summary After explaining the procedure to the patient, he signed a consent and then brought to the stress nuclear laboratory. Patient received 0.4 mg Lexiscan for stress test, ECG, heart rate and blood pressure were monitored continuously. Resting and stress dose of radio tracer were injected, imaging was acquired and reviewed in short axis, horizontal long axis and vertical long axis views. TID: 1.03 SSS: 6 SDS: 3 EF: 68 Patient was unable to exercise beyond 8 minutes and 20 seconds on standard Arpan protocol achieving only 77% of maximal expected heart rate, test was terminated and converted to Lexiscan Myoview stress test Patient tolerated Lexiscan well Diaphragmatic attenuation with mild decrease uptake involving the mid to apical anterior septum with mild reversibility overall no significant ischemia or infarction noted on SPECT images Normal left ventricular size, ejection fraction 68% YINA LEVINE MD Dec 17, 2022 12:16
== END ==
LOC: CARD 07:10
PROVIDERS: ATTEND Internal Medicine Cardiovascular Disease
DX: I25.10 Atherosclerotic heart disease of native coronary artery without angina pectoris (principal)
CPT/HCPCS: 78452; 93017; A9502